=== PATIENT | male | born 1950 | race Hispanic/Latino ===

== ENCOUNTER 2018-10-21 14:48 | Emergency (ER) | payer OTHER ==
[2018-10-21 15:25] LABS: BASOPHILS % (AUTO) 0.4 % (0.0-5.0); EOSINOPHILS % (AUTO) 0.5 % (0.0-8.0); LYMPHOCYTES % (AUTO) 27.3 % (21.0-51.0); MEAN CORPUSCULAR HEMOGLOBIN 30.3 pg (27.0-33.0); MEAN CORPUSCULAR HGB CONC 34.3 g/dL (32.0-36.0); MEAN CORPUSCULAR VOLUME 88.1 fL (79-99); MONOCYTES % (AUTO) 12.9 % (3.0-13.0); NEUTROPHILS % (AUTO) 58.9 % (40.0-77.0); NUCLEATED RED BLOOD CELLS 0.1 % (0.0-0.19); PLATELET COUNT (AUTO) 224 K/uL (130-400); RED BLOOD CELL COUNT(AUTO) 4.88 MIL/uL (4.50-6.20); RED CELL DISTRIBUTION WIDTH 13.3 % (11.0-15.5)
[2018-10-21 15:31] LABS: CREATININE 1.2 mg/dL (0.5-1.5); POTASSIUM 3.4 mmol/L (3.5-5.1)
[2018-10-21 15:45] LABS: ALBUMIN 3.6 g/dL (3.5-5.0); BILIRUBIN,TOTAL 0.8 mg/dL (0.2-1.0); TOTAL PROTEIN, SERUM 7.8 g/dL (6.0-8.3)
[2018-10-21 15:49] LABS: CREATINE KINASE, TOTAL 38 U/L (21-232); MYOGLOBIN 40 ng/mL (10-92); TROPONIN I < 0.04 ng/mL (0.00-0.06)
[2018-10-21] MEDS ORDERED: KETOROLAC TROMETHAMINE 30MG/ML ONE (17:03)
[2018-10-21 17:09] LABS: INR 0.97 (0.85-1.15); PARTIAL THROMBOPLASTIN TIME 32.5 SEC (26.3-35.5); PROTHROMBIN TIME 10.2 SEC (9.6-11.6)
== END 2018-10-21 17:33 | disposition home or self-care (01) ==
LOC: EDH 14:48
DX: M10.061 Idiopathic gout, right knee (principal); R00.2 Palpitations; I25.10 Atherosclerotic heart disease of native coronary artery without angina pectoris
CPT/HCPCS: 36415; 71045; 80053; 82550; 83735; 83874; 84484; 85025; 85610; 85730; 93005; 96372; 99284; J1885

== ENCOUNTER → 2021-09-17 | Emergency (ER) | payer OTHER ==
[~2021-09-17] VITALS: Ht 177.8 cm; Wt 79.4 kg
[2021-09-17 14:58] VITALS: BP 102/52
== END | disposition left against medical advice (07) ==
LOC: EDH 14:51
DX: I48.91 Unspecified atrial fibrillation (principal); Z53.21 Procedure and treatment not carried out due to patient leaving prior to being seen by health care provider
CPT/HCPCS: 71045; 93005

== ENCOUNTER → 2022-08-08 | Emergency (ER) | payer OTHER, MEDICARE ==
[~2022-08-08] VITALS: Ht 177.8 cm; Wt 79.4 kg
[~2022-08-08] MED LIST: IBUPROFEN 600 MG TABLET PO ONE; LIDOCAINE HCL 1% 20 ML VIAL ONE; PANTOPRAZOLE 40 MG TAB DR PO SCH; TRIAMCINOLONE ACETONIDE 40 MG/ML 1ML VIAL SQ ONE
[2022-08-08 23:11] VITALS: BP 121/84
== END | disposition home or self-care (01) ==
LOC: EDH 20:06
DX: M17.0 Bilateral primary osteoarthritis of knee (principal); K21.9 Gastro-esophageal reflux disease without esophagitis; I25.10 Atherosclerotic heart disease of native coronary artery without angina pectoris; M1A.9XX0 Chronic gout, unspecified, without tophus (tophi); Z90.49 Acquired absence of other specified parts of digestive tract; Z98.890 Other specified postprocedural states
CPT/HCPCS: 20610; 99284; J3301